=== PATIENT | male | born 1985 | race Two or more races ===

== ENCOUNTER 2019-07-24 19:43 | Emergency (ER) | payer MEDICAID ==
[~2019-07-24] VITALS: Ht 170.2 cm; Wt 72.0 kg
[2019-07-24 19:44] VITALS: BP 142/83
[2019-07-24] MEDS ORDERED: DIPH,PERTUSS(ACELL),TET VAC/PF 0.5 ML IM-VACC ONE ×2 (19:57→20:00)
[2019-07-24] MEDS ORDERED: LIDOCAINE 1%, 10ML INFIL ONE (20:30)
[2019-07-24] MEDS ORDERED: LIDOCAINE-MPF 1%, 5ML ONE (20:46)
--- NOTE | 2019-07-24 21:40 | NUR ---
PT PRESSED HIS CALL LIGHT, WHEN THIS RN WENT IN TO ASSIST THE PT. HE WAS VERY IMPATIENT, STATING, "I JUST NEED TO GO. THE DOCTOR SAID SHE WAS GOING TO PUT A STAPLE IN MY HAND BUT I DON'T WANT TO DO ANYMORE NEEDLES". PT WAS ADVISED OF THE RISKS OF LEAVING THE LAC ON HIS HAND OPEN. PT STATES "I DON'T CARE, I JUST NEED TO GO." DR. MACHADO AND SHARDA OCONNOR AWARE. DR. MACHADO SPOKE WITH THE PT OFFERING TO SUTURE HAND AND PT ADAMANTLY REFUSES. PT PACING AROUND ROOM, UNABLE TO STAND STILL, FIGETING WITH HANDS. AMA FORM SIGNED BY PT. PT PROVIDED WITH DISCHARGE PAPERS AND ABX PRESCRIPTION. PT EDUCATED ON THE IMPORTANCE OF THE PRESCRIPTION DUE TO THE RETAINED GLASS IN HAND. PT ESCORTED TO THE DISCHARGE DESK.
== END 2019-07-24 22:47 | disposition left against medical advice (07) ==
LOC: ED 21:48
DX: S61.421A Laceration with foreign body of right hand, initial encounter (principal); S60.221A Contusion of right hand, initial encounter; F17.200 Nicotine dependence, unspecified, uncomplicated; Y04.0XXA Assault by unarmed brawl or fight, initial encounter; Y93.89 Activity, other specified; Y92.009 Unspecified place in unspecified non-institutional (private) residence as the place of occurrence of the external cause; Y99.8 Other external cause status
CPT/HCPCS: 90471; 90715; 99283